=== PATIENT | female | born 2000 | race Caucasian/White ===

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

== ENCOUNTER 2019-09-17 01:32 | Emergency (ER) | payer OTHER ==
[~2019-09-17] VITALS: Ht 160 cm; Wt 63.5 kg
[2019-09-17 01:39] VITALS: BP 148/84
--- NOTE | 2019-09-17 04:59 | NUR ---
PT TAKEN TO BED 5
--- NOTE | 2019-09-17 05:00 | NUR ---
ASSESSMENT COMPLETE WITH PATIENT SITTING UP IN BED, VSS. AAO. BED LOW LOCKED. SIDE RAIL UP ON ONE SIDE. ASSESSMENT NOTE: BIB SELF REPORTING SIGN OF UTI. PATIENT STATED SHE HAS LOW BACK PAIN AND SUPRAPUBIC PAIN. ALSO REPORTS URINARY FREQUENCY, AND BURNING WHEN PEEING FOR THE PAST 5 DAYS. STATES SHE HAS HAD A UTI IN THE PAST. PATIENT STATES NO OTHER SYMPTOMS, CLEAR LUNG SOUNDS. ABD SOFT AND BOWEL SOUNDS ACTIVE. PMH: ASTHMA
[2019-09-17 06:32] VITALS: BP 118/76
--- NOTE | 2019-09-17 06:32 | NUR ---
Patient discharged with v/s stable. She states pain relief. Written and verbal after care instructions given and explained. Patient alert, oriented and verbalized understanding of instructions. Ambulatory with steady gait. All questions addressed prior to discharge. ID band removed. Patient advised to follow up with PMD. Rx of Cipro and Phenazopyridine given. Patient educated on indication of medication including possible reaction and side effects. Opportunity to ask questions provided and answered.
[2019-09-17 06:54] LABS: APPEARANCE,URINE HAZY (CLEAR); BILIRUBIN,URINE NEGATIVE (NEGATIVE); BLOOD, URINE 2+ (NEGATIVE); COLOR,URINE YELLOW (YELLOW); LEUKOCYTE ESTERASE ,URINE NEGATIVE (NEGATIVE); NITRITE, URINE NEGATIVE (NEGATIVE); UGLUCOSE NEGATIVE (NEGATIVE)
[2019-09-17 07:23] LABS: RBC,URINE 11-20 (MOD) /HPF (0-5)
[2019-09-17 07:25] LABS: WBC,URINE 0-5 /HPF (0-5)
[2019-09-19 06:07] LABS: CHLAMYDIA TRACHOMATIS AMP DNA Negative (Negative)
== END 2019-09-17 06:32 | disposition home or self-care (01) ==
LOC: MED 01:32
DX: R30.0 Dysuria (principal); K21.9 Gastro-esophageal reflux disease without esophagitis; J45.909 Unspecified asthma, uncomplicated; Z79.899 Other long term (current) drug therapy
CPT/HCPCS: 36415; 81001; 81025; 87491; 99283

== ENCOUNTER 2020-05-28 21:53 | Emergency (ER) | payer OTHER ==
[~2020-05-28] VITALS: Ht 157.5 cm; Wt 50.8 kg
[2020-05-28 22:08] VITALS: BP 112/68
[2020-05-28] MEDS ORDERED: LORazepam 2 MG/ML VIAL IM ONE (22:30)
[2020-05-28 23:12] LABS: BASOPHILS % (AUTO) 0.5 % (0.0-2.0); EOSINOPHILS % (AUTO) 0.4 % (0.0-4.0); HEMATOCRIT 38.1 % (36-48); HEMOGLOBIN 12.5 g/dL (12.0-16.0); LYMPHOCYTES # (AUTO) 1.4 K/uL (2.5-16.5); LYMPHOCYTES % (AUTO) 24.3 % (20.5-51.1); MEAN CORPUSCULAR HEMOGLOBIN 30 pg (27-31); MEAN CORPUSCULAR HGB CONC 33 g/dL (33-37); MEAN CORPUSCULAR VOLUME 91.3 fL (80-94); MONOCYTES # (AUTO) 0.4 K/uL (0.8-1.0); MONOCYTES % (AUTO) 7.1 % (1.7-9.3); NEUTROPHILS % (AUTO) 67.7 % (42.2-75.2); PLATELET COUNT (AUTO) 224 K/uL (140-450); RED BLOOD CELL COUNT(AUTO) 4.17 MIL/uL (4.20-5.40); RED CELL DISTRIBUTION WIDTH 14.3 % (11.6-13.7); WHITE BLOOD COUNT (AUTO) 5.9 K/uL (4.5-11.0)
[2020-05-28 23:34] LABS: ALBUMIN 4.1 g/dL (3.4-5.0); ANION GAP 15.3 (8-16); CARBON DIOXIDE 24.4 mmol/L (21-32); CREATININE 0.8 mg/dL (0.6-1.3); MAGNESIUM 2.3 mg/dL (1.8-2.4); POTASSIUM 3.7 mmol/L (3.5-5.1); THYROID STIMULATING HORMONE 0.59 uIU/mL (0.34-3.74); TOTAL BILIRUBIN 0.8 mg/dL (0.0-1.0)
[2020-05-29 01:06] VITALS: BP 112/68
== END 2020-05-29 01:06 | disposition home or self-care (01) ==
LOC: MED 21:53
DX: F41.9 Anxiety disorder, unspecified (principal); J45.909 Unspecified asthma, uncomplicated; K21.9 Gastro-esophageal reflux disease without esophagitis; Z79.899 Other long term (current) drug therapy
CPT/HCPCS: 36415; 80053; 83735; 84443; 84702; 85025; 96372; 99283; J2060

== ENCOUNTER 2020-06-18 18:08 | Emergency (ER) | payer OTHER ==
[~2020-06-18] VITALS: Ht 160 cm; Wt 50.3 kg
[2020-06-18 18:11] VITALS: BP 96/67
[2020-06-18] MEDS ORDERED: ACETAMINOPHEN EXTRA STRENGTH 500 MG TAB PO ONE (18:20)
[2020-06-18 19:00] VITALS: BP 99/70
--- NOTE | 2020-06-18 19:08 | NUR ---
19 y/o F, CAME IN WITH COMPLAINTS OF PAIN AT RIGHT HAND 4TH FINGER. REPORTS ACCIDENTALLY CUTTING FINGER WITH GLASS WHEN THROWING OUT TRASH. PAST MEDICAL HISTORY: ACID REFLUX, AND ANXIETY. NO KNOWN ALLERGIES. FINGER ALREADY TREATED, PATIENT REPORTS PAIN IS ALLEVIATED. PATIENT ASKING FOR ANXIETY MEDS. PATIENT SITTING UP IN BED, NO DISTRESS NOTED.
[2020-06-18] MEDS ORDERED: LORazepam 0.5 MG TAB PO ONE (19:15)
--- NOTE | 2020-06-18 19:25 | NUR ---
PT REPORTS BREATHING IS MORE EVEN AND NOT FEELING ANXIOUS. PAIN FROM FINGER IS RELIEVED. PT REQUESTING ATIVAN PRESCRIPTION.
--- NOTE | 2020-06-18 19:35 | NUR ---
Patient discharged with v/s stable. Written and verbal after care instructions given and explained. Patient alert, oriented and verbalized understanding of instructions. Ambulatory with steady gait. All questions addressed prior to discharge. ID band removed. Patient advised to follow up with PMD. Rx of IBUPROFEN given. Patient educated on indication of medication including possible reaction and side effects. Opportunity to ask questions provided and answered. PT IN STABLE CONDITION.
== END 2020-06-18 19:35 | disposition home or self-care (01) ==
LOC: MED 18:08
DX: S61.210A Laceration without foreign body of right index finger without damage to nail, initial encounter (principal); K21.9 Gastro-esophageal reflux disease without esophagitis; J45.909 Unspecified asthma, uncomplicated; W26.8XXA Contact with other sharp object(s), not elsewhere classified, initial encounter; Z79.899 Other long term (current) drug therapy; Y93.89 Activity, other specified; Y92.89 Other specified places as the place of occurrence of the external cause; Y99.8 Other external cause status
CPT/HCPCS: 12001; 73140; 90471; 90715; 99283; Q0092

== ENCOUNTER 2020-12-31 10:59 | Emergency (ER) | payer OTHER ==
[~2020-12-31] VITALS: Ht 160 cm; Wt 52.2 kg
[2020-12-31 11:05] VITALS: BP 123/52
--- NOTE | 2020-12-31 11:10 | NUR ---
Patient ambulated with steady gait to bed 8.
--- NOTE | 2020-12-31 11:12 | NUR ---
20 Y/O FEMALE C/O ABDOMINAL PAIN 8/ DESCRIBES SHARP RADIATING TO LEFT FLANK AND LEFT LEG X2DAYS. PT STATES +FEVER/CHILLS, +N/V [id number] TODAY. PT STATES DYSURIA PRESENT, DENIES DISCHARGE. LMP 12/28/20. ABDOMEN IS SOFT, FLAT, TENDER TO PALPATION TO LUQ, BOWEL SOUNDS ACTIVE X4, LAST BM 12/30/20. PMH: GERD, ANEMIA RX: IRON PO, PEPCID NKA
--- NOTE | 2020-12-31 11:21 | NUR ---
Dr. Camara at pt bedside for further evaluation.
[2020-12-31 11:41] LABS: BASOPHILS % (AUTO) 0.3 % (0.0-2.0); EOSINOPHILS % (AUTO) 0.1 % (0.0-4.0); HEMATOCRIT 36.1 % (36-48); HEMOGLOBIN 12.2 g/dL (12.0-16.0); LYMPHOCYTES # (AUTO) 0.3 K/uL (2.5-16.5); LYMPHOCYTES % (AUTO) 3.1 % (20.5-51.1); MEAN CORPUSCULAR HEMOGLOBIN 31 pg (27-31); MEAN CORPUSCULAR HGB CONC 34 g/dL (33-37); MEAN CORPUSCULAR VOLUME 90.9 fL (80-94); MONOCYTES # (AUTO) 0.2 K/uL (0.8-1.0); MONOCYTES % (AUTO) 2.1 % (1.7-9.3); NEUTROPHILS # (AUTO) 7.6 K/uL (1.8-7.7); NEUTROPHILS % (AUTO) 94.4 % (42.2-75.2); PLATELET COUNT (AUTO) 128 K/uL (140-450); RED BLOOD CELL COUNT(AUTO) 3.97 MIL/uL (4.20-5.40); RED CELL DISTRIBUTION WIDTH 17.2 % (11.6-13.7); WHITE BLOOD COUNT (AUTO) 8.1 K/uL (4.8-10.8)
[2020-12-31] MEDS: ONDANSETRON 4 MG/2 ML VIAL IVP ONE (11:52)
[2020-12-31] MEDS: NACL 0.9% 1,000 ML IV ONE (11:53)
[2020-12-31 11:59] LABS: ANION GAP 14.7 (8-16); CARBON DIOXIDE 28.1 mmol/L (21-32); CREATININE 0.8 mg/dL (0.6-1.3); POTASSIUM 3.8 mmol/L (3.5-5.1)
[2020-12-31 12:04] LABS: ALBUMIN 3.9 g/dL (3.4-5.0)
[2020-12-31 13:19] LABS: APPEARANCE,URINE HAZY (CLEAR); BILIRUBIN,URINE 1+ (NEGATIVE); COLOR,URINE YELLOW (YELLOW); LEUKOCYTE ESTERASE ,URINE 1+ (NEGATIVE); NITRITE, URINE POSITIVE (NEGATIVE); PH,URINE 6.5 (5.0-9.0); UGLUCOSE NEGATIVE (NEGATIVE)
[2020-12-31] MEDS ORDERED: IBUP-2213 PO (13:19)
[2020-12-31] MEDS ORDERED: CEPH-588 PO (13:19)
[2020-12-31] MEDS ORDERED: ACET-10509 PO (13:19)
[2020-12-31] MEDS ORDERED: ONDA-24 SL (13:19)
[2020-12-31 13:30] VITALS: BP 124/68
--- NOTE | 2020-12-31 13:32 | NUR ---
Patient discharged with v/s stable. Written and verbal after care instructions given and explained. Patient alert, oriented and verbalized understanding of instructions. Ambulatory with steady gait. All questions addressed prior to discharge. ID band removed. Patient advised to follow up with PMD. Rx of TYLENOL, IBUPOFEN, ZOFRAN, AND KEFLEX given. Patient educated on indication of medication including possible reaction and side effects. Opportunity to ask questions provided and answered.
[2020-12-31 13:47] LABS: BLOOD, URINE 2+ (NEGATIVE)
== END 2020-12-31 13:32 | disposition home or self-care (01) ==
LOC: MED 10:59
DX: N12 Tubulo-interstitial nephritis, not specified as acute or chronic (principal); E86.0 Dehydration; R11.2 Nausea with vomiting, unspecified; K21.9 Gastro-esophageal reflux disease without esophagitis; Z79.899 Other long term (current) drug therapy
CPT/HCPCS: 36415; 80053; 81001; 81025; 85025; 87086; 96361; 96365; 96375; 99284; J0696; J2405; J7030; J7060

== ENCOUNTER 2021-01-17 22:24 | Emergency (ER) | payer OTHER ==
[~2021-01-17] VITALS: Ht 160 cm; Wt 53.1 kg
[~2021-01-17 22:24] MED LIST changes: +ACET-10509 PO; +CEPH-588 PO; +ONDA-24 SL
[2021-01-17 22:31] VITALS: BP 123/74
--- NOTE | 2021-01-17 22:36 | NUR ---
PATIENT AMBULATED TO RESTROOM WITH STEADY GAIT TO PROVIDE UA.
[2021-01-17 22:48] LABS: APPEARANCE,URINE CLOUDY (CLEAR); BILIRUBIN,URINE 1+ (NEGATIVE); BLOOD, URINE NEGATIVE (NEGATIVE); COLOR,URINE DARK YELLOW (YELLOW); LEUKOCYTE ESTERASE ,URINE 2+ (NEGATIVE); NITRITE, URINE NEGATIVE (NEGATIVE); UGLUCOSE NEGATIVE (NEGATIVE)
[2021-01-17 22:58] LABS: RBC,URINE 0-5 /HPF (0-5)
[2021-01-17 22:59] LABS: URINE AMORPHOUS URATE 1+ /HPF (None Seen)
--- NOTE | 2021-01-17 23:00 | NUR ---
DEIRDRE BIB SELF FOR C/O BILATERAL FLANK PAIN X 2 DAYS. PATIENT STATES URINARY BURNING X 3 WEEKS. PATIENT STATES COMPLETING A COURSE OF CEPHALEXIN X3 WKS AGO BUT SYMPTOMS STILL PERSIST. PT DENIES OTHER MEDICAL HX OR MEDS
--- NOTE | 2021-01-17 23:04 | NUR ---
PT AMBULATORY TO BED
[2021-01-18] MEDS ORDERED: PHEN-1877 PO ×2 (00:25→00:45)
[2021-01-18] MEDS ORDERED: SULF-59 PO ×2 (00:25→00:45)
[2021-01-18] MEDS ORDERED: ONDA-24 SL (00:45)
[2021-01-18] MEDS: SULFAMETH/TRIMETH DS 800/160MG 1 TAB PO ONE (00:47)
[2021-01-18 01:15] VITALS: BP 112/64
--- NOTE | 2021-01-18 01:15 | NUR ---
Patient discharged with v/s stable. Written and verbal after care instructions given and explained. Patient alert, oriented and verbalized understanding of instructions. Ambulatory with steady gait. All questions addressed prior to discharge. ID band removed. Patient advised to follow up with PMD. Rx of BACTRIM, PYRIDIUM, ZOFRAN given. Patient educated on indication of medication including possible reaction and side effects. Opportunity to ask questions provided and answered.
== END 2021-01-18 01:15 | disposition home or self-care (01) ==
LOC: MED 22:24
DX: N39.0 Urinary tract infection, site not specified (principal); K21.9 Gastro-esophageal reflux disease without esophagitis; Z79.899 Other long term (current) drug therapy
CPT/HCPCS: 36415; 81001; 81025; 87086; 87491; 99283

== ENCOUNTER 2021-03-07 00:19 | Emergency (ER) | payer OTHER ==
[~2021-03-07] VITALS: Ht 160 cm; Wt 56.7 kg
[~2021-03-07 00:19] MED LIST changes: +PHEN-1877 PO; +SULF-59 PO
--- NOTE | 2021-03-07 00:26 | NUR ---
PT TAKEN TO BED 2
[2021-03-07 00:31] VITALS: BP 136/92
--- NOTE | 2021-03-07 00:34 | NUR ---
BIB FROM HOME PT REPORTS NEW ONSET DIZZINESS X 30 MINUTES AGO, PT REPORTS HX OF PANIC ATTACKS BUT STATES "THIS IS DIFFERENT." DIZZINES COMES AND GOES. HAS NAUSEA. REPORTS CURRENTLY TAKING ABX FOR UTI. AAOX4. MOTHER AT BEDSIDE. MED HX: PANIC ATTACKS, RECURRENT UTI ALLERGIES: NKA
[2021-03-07] MEDS ORDERED: NACL 0.9% 1,000 ML IV ONE (00:45)
--- NOTE | 2021-03-07 00:46 | NUR ---
PATIENT AMBULATED TO THE BATHROOM FOR URINE COLLECTION
--- NOTE | 2021-03-07 01:48 | NUR ---
DR. MATTSON AT BEDSIDE FOR EVALUATION
[2021-03-07] MEDS ORDERED: CIPR500T4 PO (02:02)
[2021-03-07] MEDS ORDERED: ONDA8TAB87 PO (02:02)
[2021-03-07] MEDS ORDERED: ATA25 PO (02:10)
--- NOTE | 2021-03-07 02:10 | NUR ---
AT TIME OF DISCHARGE, PT REQUESTING ANTI-ANXIETY MEDICATION. DR. MATTSON INFORMED AT STATED WILL SEND PT HOME WITH RX OF ATARAX. PT NOTIFIED.
--- NOTE | 2021-03-07 02:10 | NUR ---
Patient discharged with v/s stable. Written and verbal after care instructions given and explained. Patient alert, oriented and verbalized understanding of instructions. Ambulatory with steady gait. All questions addressed prior to discharge. ID band removed. Patient advised to follow up with PMD. Rx of CIPRO, ZOFRAN, AND ATARAX given. Patient educated on indication of medication including possible reaction and side effects. Opportunity to ask questions provided and answered.
== END 2021-03-07 02:10 | disposition home or self-care (01) ==
LOC: MED 00:19
DX: R42 Dizziness and giddiness (principal); N39.0 Urinary tract infection, site not specified; R11.0 Nausea; R30.0 Dysuria; K21.9 Gastro-esophageal reflux disease without esophagitis; F12.90 Cannabis use, unspecified, uncomplicated; Z79.899 Other long term (current) drug therapy
CPT/HCPCS: 81002; 81025; 99283

== ENCOUNTER 2022-12-06 11:39 | Emergency (ER) | payer OTHER ==
[~2022-12-06] VITALS: Ht 160 cm; Wt 60.3 kg
[~2022-12-06 11:39] MED LIST changes: +ATA25 PO; +CIPR500T4 PO; +ONDA-188 SL; -ONDA-24 SL; +ONDA8TAB87 PO
[2022-12-06 11:56] VITALS: BP 127/92
--- NOTE | 2022-12-06 12:02 | NUR ---
21 Y/O FEMALE BIB MOTHER C/O URINARY FREQUENCY AND CHANGE IN URINE COLORX1 WEEK. DENIES ANY PAIN AT THE MOMENT, DENIES ANY BURNING OR BLOOD IN URINE NKA PMH: DENIES
[2022-12-06 12:48] LABS: APPEARANCE,URINE CLEAR (CLEAR); BILIRUBIN,URINE NEGATIVE (NEGATIVE); BLOOD, URINE TRACE-I (NEGATIVE); COLOR,URINE YELLOW (YELLOW); LEUKOCYTE ESTERASE ,URINE NEGATIVE (NEGATIVE); NITRITE, URINE POSITIVE (NEGATIVE); PH,URINE 7.5 (5.0-9.0); UGLUCOSE NEGATIVE (NEGATIVE)
[2022-12-06 13:04] LABS: YEAST,URINE Moderate /HPF (None Seen)
[2022-12-06] MEDS ORDERED: CEPH-588 PO (13:18)
[2022-12-06] MEDS ORDERED: ONDA-188 SL (13:25)
--- NOTE | 2022-12-06 13:34 | NUR ---
Patient discharged with v/s stable. Written and verbal after care instructions ABOUT UTI given and explained. Patient alert, oriented and verbalized understanding of instructions. Ambulatory with steady gait. All questions addressed prior to discharge. ID band removed. Patient advised to follow up with PMD. Rx of CEPHALEXIN given. Patient educated on indication of medication including possible reaction and side effects. Opportunity to ask questions provided and answered.
--- NOTE | 2022-12-11 16:57 | NUR ---
LATE ENTRY. RECEIVED POSITIVE URINE CULTURE. FORM GIVEN TO DR TRUJILLO. TREATMENT APPROPRIATE. FORM PLACED IN BINDER
== END 2022-12-06 13:34 | disposition home or self-care (01) ==
LOC: MED 11:39
DX: N39.0 Urinary tract infection, site not specified (principal); R03.0 Elevated blood-pressure reading, without diagnosis of hypertension; K21.9 Gastro-esophageal reflux disease without esophagitis; Z79.899 Other long term (current) drug therapy
CPT/HCPCS: 81001; 81025; 87086; 99283

== ENCOUNTER 2023-07-05 11:53 | Emergency (ER) | payer OTHER ==
[~2023-07-05] VITALS: Ht 165.1 cm; Wt 81.6 kg
[2023-07-05 12:17] VITALS: BP 112/83; PULSE 73; RESP 18; TEMP 98; O2SAT 98
[2023-07-05 12:56] LABS: APPEARANCE,URINE CLEAR (CLEAR); BILIRUBIN,URINE 2+ (NEGATIVE); BLOOD, URINE 1+ (NEGATIVE); COLOR,URINE YELLOW (YELLOW); LEUKOCYTE ESTERASE ,URINE NEGATIVE (NEGATIVE); NITRITE, URINE POSITIVE (NEGATIVE); PH,URINE 6.5 (5.0-9.0); PROTEIN,URINE 1+ (NEGATIVE); UGLUCOSE TRACE (NEGATIVE)
[2023-07-05 13:08] LABS: ICTOTEST POSITIVE (NEGATIVE)
[2023-07-05 13:11] LABS: RBC,URINE 0-5 /HPF (0-5)
[2023-07-05 13:13] LABS: BACTERIA,URINE 2+ /HPF (None Seen); MUCUS,URINE 1+ /LPF (None Seen); SQUAMOUS EPITHELIAL CELL,UR 0-3 (FEW) /LPF (0-3 (FEW))
[2023-07-05] MEDS ORDERED: CEPH-588 PO (13:21)
[2023-07-05] MEDS ORDERED: PYR100 PO (13:21)
[2023-07-05] MEDS ORDERED: ONDA-188 SL (13:46)
== END 2023-07-05 13:50 | disposition home or self-care (01) ==
LOC: MED 11:53
DX: N30.01 Acute cystitis with hematuria (principal); Z79.899 Other long term (current) drug therapy
CPT/HCPCS: 81001; 81025; 87086; 99283

== ENCOUNTER 2023-10-17 17:08 | Emergency (ER) | payer OTHER ==
[~2023-10-17] VITALS: Ht 160 cm; Wt 61.2 kg
[~2023-10-17 17:08] MED LIST changes: +PYR100 PO
[2023-10-17 17:48] VITALS: BP 134/78; PULSE 101; RESP 18; TEMP 98; O2SAT 99
[2023-10-17 18:21] LABS: HEMOGLOBIN 13.3 g/dL (12.0-16.0); LYMPHOCYTES # (AUTO) 0.8 K/uL (2.5-16.5); LYMPHOCYTES % (AUTO) 18.7 % (20.5-51.1); MEAN CORPUSCULAR HEMOGLOBIN 34 pg (27-31); MEAN CORPUSCULAR HGB CONC 34 g/dL (33-37); MONOCYTES # (AUTO) 0.3 K/uL (0.8-1.0); MONOCYTES % (AUTO) 5.7 % (1.7-9.3); NEUTROPHILS # (AUTO) 3.3 K/uL (1.8-7.7); NEUTROPHILS % (AUTO) 74.6 % (42.2-75.2); PLATELET COUNT (AUTO) 188 K/uL (140-450); RED BLOOD CELL COUNT(AUTO) 3.94 MIL/uL (4.20-5.40); RED CELL DISTRIBUTION WIDTH 13.8 % (11.6-13.7); WHITE BLOOD COUNT (AUTO) 4.4 K/uL (4.8-10.8)
[2023-10-17 18:52] LABS: ALBUMIN 4.4 g/dL (3.4-5.0); BILIRUBIN,DIRECT 0.7 mg/dL (0.0-0.3); TOTAL BILIRUBIN 1.6 mg/dL (0.0-1.0); TOTAL PROTEIN, SERUM 9.5 g/dL (6.4-8.2)
[2023-10-17 19:20] LABS: ANION GAP 19.3 (8-16); POTASSIUM 3.5 mmol/L (3.5-5.1)
[2023-10-17 19:21] LABS: CALCIUM 9.1 mg/dL (8.5-10.1); CARBON DIOXIDE 24.2 mmol/L (21-32); CREATININE 0.7 mg/dL (0.6-1.3)
[2023-10-17] MEDS ORDERED: ONDA-188 SL (22:16)
[2023-10-17] MEDS ORDERED: FAMO-92 PO (22:16)
== END 2023-10-17 22:23 | disposition home or self-care (01) ==
LOC: MED 17:08
DX: K29.70 Gastritis, unspecified, without bleeding (principal); K21.9 Gastro-esophageal reflux disease without esophagitis; R79.89 Other specified abnormal findings of blood chemistry; Z79.899 Other long term (current) drug therapy
CPT/HCPCS: 36415; 76705; 80048; 80076; 81002; 81025; 83690; 85025; 99284

== ENCOUNTER 2024-03-02 12:15 | Emergency (ER) | payer OTHER ==
[~2024-03-02] VITALS: Ht 160 cm; Wt 67.7 kg
[~2024-03-02 12:15] MED LIST changes: +FAMO-92 PO
[2024-03-02 12:34] VITALS: BP 109/59; PULSE 79; RESP 20; TEMP 97.9; O2SAT 100
[2024-03-02] MEDS: IBUPROFEN 600 MG TAB PO ONE (13:46)
[2024-03-02 13:47] LABS: ANION GAP 22.7 (8-16); CALCIUM 8.8 mg/dL (8.5-10.1); CARBON DIOXIDE 21.1 mmol/L (21-32); CREATININE 0.8 mg/dL (0.6-1.3); POTASSIUM 3.8 mmol/L (3.5-5.1)
[2024-03-02 13:51] LABS: ALBUMIN 4.4 g/dL (3.4-5.0); BILIRUBIN,DIRECT 0.3 mg/dL (0.0-0.3); MAGNESIUM 2.2 mg/dL (1.8-2.4); TOTAL BILIRUBIN 0.8 mg/dL (0.0-1.0); TOTAL PROTEIN, SERUM 8.2 g/dL (6.4-8.2)
[2024-03-02 14:08] LABS: BASOPHILS % (AUTO) 0.1 % (0.0-2.0); HEMATOCRIT 40.8 % (36-48); HEMOGLOBIN 13.1 g/dL (12.0-16.0); LYMPHOCYTES # (AUTO) 0.4 K/uL (2.5-16.5); LYMPHOCYTES % (AUTO) 5.5 % (20.5-51.1); MEAN CORPUSCULAR HEMOGLOBIN 30 pg (27-31); MEAN CORPUSCULAR HGB CONC 32 g/dL (33-37); MEAN CORPUSCULAR VOLUME 91.6 fL (80-94); MONOCYTES # (AUTO) 0.3 K/uL (0.8-1.0); MONOCYTES % (AUTO) 3.2 % (1.7-9.3); NEUTROPHILS # (AUTO) 7.3 K/uL (1.8-7.7); NEUTROPHILS % (AUTO) 91.2 % (42.2-75.2); PLATELET COUNT (AUTO) 188 K/uL (140-450); RED BLOOD CELL COUNT(AUTO) 4.45 MIL/uL (4.20-5.40); RED CELL DISTRIBUTION WIDTH 17.7 % (11.6-13.7)
[2024-03-02 14:13] LABS: BILIRUBIN,URINE NEGATIVE (NEGATIVE); BLOOD, URINE 3+ (NEGATIVE); COLOR,URINE YELLOW (YELLOW); LEUKOCYTE ESTERASE ,URINE TRACE (NEGATIVE); NITRITE, URINE NEGATIVE (NEGATIVE); PROTEIN,URINE 1+ (NEGATIVE); UGLUCOSE NEGATIVE (NEGATIVE); UROBILINOGEN,URINE 0.2 EU/dL (0.2 - 1)
[2024-03-02 14:14] LABS: APPEARANCE,URINE SLIGHTLY CLOUDY (CLEAR)
[2024-03-02 14:30] LABS: BACTERIA,URINE 10-30 (MOD) /HPF (None Seen); MUCUS,URINE 1+ /LPF (None Seen); SQUAMOUS EPITHELIAL CELL,UR 4-10 (MOD) /LPF (0-3 (FEW))
[2024-03-02] MEDS ORDERED: [UNRECOGNIZED DRUG - CODE] PO (14:51)
[2024-03-02] MEDS ORDERED: PYR100 PO (14:51)
[2024-03-02] MEDS ORDERED: NITR100C7 PO (14:51)
== END 2024-03-02 15:09 | disposition home or self-care (01) ==
LOC: MED 12:15
DX: N39.0 Urinary tract infection, site not specified (principal); R53.83 Other fatigue; R03.0 Elevated blood-pressure reading, without diagnosis of hypertension; K21.9 Gastro-esophageal reflux disease without esophagitis; Z79.1 Long term (current) use of non-steroidal anti-inflammatories (NSAID); Z79.2 Long term (current) use of antibiotics; Z79.899 Other long term (current) drug therapy
CPT/HCPCS: 36415; 71045; 80048; 80076; 81001; 81025; 83690; 83735; 85025; 93005; 99285